=== PATIENT | male | born 1955 | race Hispanic/Latino ===

== ENCOUNTER → 2022-02-10 | Outpatient (CLI) | payer MEDICARE | END | disposition home or self-care (01) | LOC: SHCH 10:25 | PROVIDERS: ATTEND Internal Medicine Cardiovascular Disease | DX: I51.7 Cardiomegaly (principal); R06.02 Shortness of breath; R53.83 Other fatigue | CPT/HCPCS: 93306 ==

== ENCOUNTER → 2022-02-16 | Outpatient (CLI) | payer MEDICARE ==
[~2022-02-16] MED LIST: REGADENOSON 0.4 MG/5 ML PF SYG IVP SCH
== END | disposition home or self-care (01) ==
LOC: SHCH 08:56
PROVIDERS: ATTEND Internal Medicine Cardiovascular Disease
DX: R06.02 Shortness of breath (principal); R53.83 Other fatigue
CPT/HCPCS: 78452; 96374; 93017; J2785; A9500 ×2

== ENCOUNTER → 2022-05-23 | Outpatient (CLI) | payer MEDICARE | END | disposition home or self-care (01) | LOC: RAH 14:40 | PROVIDERS: ATTEND Physical Medicine & Rehabilitation | DX: M47.812 Spondylosis without myelopathy or radiculopathy, cervical region (principal) | CPT/HCPCS: 72125 ==

== ENCOUNTER → 2022-09-03 | Outpatient (CLI) | payer MEDICARE | END | disposition home or self-care (01) | LOC: RAH 09:07 | PROVIDERS: ATTEND Neurological Surgery | DX: M47.812 Spondylosis without myelopathy or radiculopathy, cervical region (principal); M43.22 Fusion of spine, cervical region | CPT/HCPCS: 72040 ==

== ENCOUNTER 2023-04-24 06:37 | Day surgery (SDC) | payer MEDICARE ==
[2023-04-24] VITALS (12 sets, daily range): BP systolic 94–126; BP diastolic 54–73; PULSE 64–74; RESP 11–15
[~2023-04-24 06:37] MED LIST changes: +EYE VITAMIN PO; +GABA-534 PO; +INSU300I SQ; +LATA2.5D14 OU; +LEVO50CA4 PO; +METF-444 PO; +OLME20TA68 PO; -REGADENOSON 0.4 MG/5 ML PF SYG IVP SCH; +SEMA2PEN SQ; +SIMV-43 PO
[2023-04-24] MEDS ORDERED: PROPOFOL 10 MG/ML 20ML VIAL IV ONE (08:34)
[2023-04-24] MEDS ORDERED: 0.9%NACL 1000ML 1,000 ML IV ONE (11:24)
== END 2023-04-24 10:15 | disposition home or self-care (01) ==
LOC: DAH 06:37 → ENDO 06:37
PROVIDERS: ATTEND Internal Medicine Gastroenterology
DX: Z12.11 Encounter for screening for malignant neoplasm of colon (principal); D12.4 Benign neoplasm of descending colon; K62.1 Rectal polyp; K57.30 Diverticulosis of large intestine without perforation or abscess without bleeding; I10 Essential (primary) hypertension; E11.9 Type 2 diabetes mellitus without complications; E03.9 Hypothyroidism, unspecified; E78.5 Hyperlipidemia, unspecified; Z86.010 Personal history of colon polyps; Z79.899 Other long term (current) drug therapy; Z79.01 Long term (current) use of anticoagulants; Z79.890 Hormone replacement therapy; Z79.84 Long term (current) use of oral hypoglycemic drugs
CPT/HCPCS: 82948 ×3; 45380; 45385; J7030 ×2; J2704; A4620; A4215 ×2; A4223; A7002; A4222; A4221; A4663; A4606; J3490